=== PATIENT | male | born 1945 | race Caucasian/White ===

== ENCOUNTER 2017-06-19 04:15 | Observation (INO) ==
[2017-06-19] MEDS ORDERED: 0.9 % Sodium Chloride 1,000 ML IVC ONE (04:27)
[2017-06-19] MEDS ORDERED: Pantoprazole 80 MG in 0.9 % Sodium Chloride 50 ML IVPB ONE (04:27)
--- NOTE | 2017-06-19 04:30 | Emergency Department Note ---
Disposition Clinical Impression: HCAP (healthcare-associated pneumonia), Severe sepsis GI bleed Qualifiers: GI bleed type/associated pathology: unspecified gastrointestinal hemorrhage type Qualified Code(s): K92.2 - Gastrointestinal hemorrhage, unspecified Disposition: Admitted As Inpatient Condition: Critical Referrals: Faith Prather [employer] [Primary Care Provider] - Forms: ED Satisfaction Letter Time of Disposition: 05:41 SOB HPI - General Chief Complaint: ED Shortness of Breath/Dyspnea Stated Complaint: RENETTA/Diarrhea Time Seen by Provider: 06/19/17 04:30 Source: patient, EMS Mode of arrival: EMS Limitations: no limitations, age Nursing Notes Reviewed: Yes Vital Signs Reviewed: Yes - History of Present Illness 71-year-old male with a history of peripheral vascular disease and recent admission for possible IN, presents with bloody diarrhea shortness of breath, and lower abdominal pain. Patient also has been feeling more short of breath as he left the hospital, but this morning he woke up early called EMS because he was having bloody stool. He does not take any blood thinners, he was recently in the hospital up at [facility] for possible IN, he left AGAINST MEDICAL ADVICE according to him, he reports for a 10 lower abdominal pain, he denies history of bloody stools, he has a remote colonoscopy that was negative, he was previously a drinker, used to drink 4-6 beers a day but only drinks a few beers now and had 3 beers last week, denies a history of esophageal varices or hepatitis. Pt Subjective Complaint: shortness of breath Onset (ago): hour(s) Context: recent illness Severity: mild Consistency/Duration: intermittent Improves with: nothing Worsens with: nothing Associated symptoms: Reports: wheezing, sputum production. Denies: chest pain, pain with inspiration, fever, cough, lower extremity pain, polyuria, polydipsia Treatment prior to arrival: none - Related Data Previous Rx's Medication Instructions Recorded Albuterol Sulfate [Albuterol 2 puff IH Q4HR PRN #1 [id number].[email or web address].[email or web address] 07/08/15 Inhaler] Azithromycin [Zithromax Tri-Isaac] 500 mg PO DAILY #3 tablet 07/08/15 GuaiFENesin/Codeine [Robitussin 10 ml PO Q6HR PRN #120 liquid 07/08/15 w/Codeine] predniSONE [Prednisone] 60 mg PO DAILY #14 tablet 07/08/15 Allergies Allergy/AdvReac Type Severity Reaction Status Date / Time No Known Allergies Allergy Verified 07/08/15 17:32 All systems ED: reviewed and negative except as stated. Review of Systems: As Per HPI Constitutional: Reports: chills, weakness Eyes: Denies: eye pain ENT ED: Denies: ear pain Cardiovascular: Denies: chest pain Respiratory: Denies: cough, dyspnea Gastrointestinal: Reports: as per HPI, abdominal pain, nausea, melena, hematochezia. Denies: vomiting, diarrhea Genitourinary: Denies: urgency Musculoskeletal: Denies: back pain Integumentary: Denies: rash, abrasion Neurological: Denies: headache Psychiatric: Denies: anxiety Past Medical History - Past Medical History Attestation: Yes The following information was validated with the patient. Source: patient Medical history: Reports: COPD, peripheral artery disease Surgical history: Reports: vascular surgery Psychiatric history: Reports: no psych history - Social History Smoking Status: Current every day smoker Smokeless Tobacco Status: No Alcohol use: Reports: none Drug use: Reports: none Physical Exam - General Limitations: no limitations, age General appearance: anxious - Head Head exam: atraumatic - Eye Eye exam: Present: other (conjunctival pallor) - ENT ENT exam: mucous membranes dry - Neck Neck exam: Present: normal inspection, full ROM - Chest Chest inspection: Present: normal inspection - Respiratory Respiratory exam: Present: normal lung sounds bilaterally. Absent: respiratory distress - Cardiovascular Cardiovascular exam: Present: tachycardia - Abdominal Exam Abdominal exam: Present: soft, tenderness. Absent: distention, guarding Abdominal tenderness: Present: diffuse, mild - Rectal Exam Bottle And Glass Inspector present during exam: Yes Rectal exam: Present: deferred, bloody stool - Neurological Exam Neurological exam: Present: alert, oriented X3, CN II-XII intact - Skin Skin exam: Present: warm, dry Course Course Narrative: 71-year-old male appears tachycardic in moderate distress, he says he short of breath were put in oxygen on him but he has clear lung sounds, does not history of COPD but is on oxygen, his history of PAD and possible recent IN he was heparinized but he was not discharged on blood thinners, will check his records from [facility], given that he is tachycardic in the 120s, he is states 2 or 3 hypovolemic shock, he has got 1 L and squad we will give 1-1/2 more liters in the emergency department check basic labs CBC conference of panel lipase lactic acid blood cultures chest x-ray CT abdomen without contrast - Reevaluation(s) Reevaluation #1: Lab work reviewed at this time, shows elevation of his lactate 3.4 with a white count of 28,000, given tachycardia white count, concern for source may be gastrointestinal given bloody diarrhea, versus urinary also suspect C. difficile given recent hospitalization, plan is for empiric broad-spectrum antibiotic coverage, repeat lactate, blood cultures, he also may be generating tachycardic response from volume loss although his initial hemoglobin is 12.3 patient will be admitted, additional 500 mL of fluid was ordered he got 1 L in route 1 L ordered here initial 500 we will give him 2500 total his 30mL/kg dose is 2430. Time: 05:09 Reevaluation #2: Patient is evidence of right lower lobe infiltrate white count 20,000 he is fluid responsive, repeat lactate ordered I spoke with Dr. Roe will treat patient empirically presuming pneumonia/possible intra-abdominal infection with duodenitis thanks Zosyn Flagyl ordered, to half liters given is currently volume responsive. Time: 05:41 Vital Signs Temperature 97.8 F 06/19/17 04:16 Pulse Rate 121 06/19/17 04:16 Respiratory Rate 20 06/19/17 04:16 Blood Pressure 100/84 06/19/17 04:16 O2 Sat by Pulse Oximetry 100 06/19/17 04:16 Temperature 97.8 F 06/19/17 04:16 Pulse Rate 98 06/19/17 05:59 Respiratory Rate 18 06/19/17 05:59 Blood Pressure 118/63 06/19/17 05:59 O2 Sat by Pulse Oximetry 100 06/19/17 05:59 Oxygen Delivery Oxygen Delivery Nasal Cannula Shortness of Breath/Dyspnea - Differential Diagnosis Likely: congestive heart failure, pneumonia, asthma with exacerbation - Medical Records Medical records reviewed: Yes I reviewed the patient's medical records. - Lab Data Lab results reviewed: Yes I reviewed the patient's lab results. Result diagrams: 06/19/17 04:34 06/19/17 04:34 Lab Results 12/06/17 12/06/17 12/06/17 Range/Units 04:34 04:34 04:34 WBC 28.9 H (4.3-11.1) K/mcL RBC 4.17 L (4.19-5.50) M/mcL Hgb 12.3 L (12.9-16.9) g/dL Hct 37.3 L (37.5-50.1) % MCV 89.4 (83.0-100.0) fL MCH 29.5 (28.0-33.3) pg MCHC 33.0 (31.6-35.5) g/dL RDW 13.1 (11.5-14.5) % Plt Count 258 (140-400) K/mcL MPV 10.2 (9.4-12.4) fL Immature Gran % 5.7 H (0-4) % Seg Neutrophils % 76.3 % Lymphocytes % 12.7 % Monocytes % 5.1 % Eosinophils % 0.1 % Basophils % 0.1 % Neutrophils # 22.1 H (1.6-8.9) K/mcL Lymphocytes # 3.7 (0.6-4.6) K/mcL Monocytes # 1.5 H (0.0-1.3) K/mcL Eosinophils # 0.0 (0.0-0.6) K/mcL Basophils # 0.0 (0.0-0.2) K/mcL Platelet Estimate Normal (Normal) PT 11.4 (9.4-12.1) Seconds INR 1.1 APTT 22.4 L (26.0-36.0) Seconds Sodium 133 L (136-145) mEq/L Potassium 4.8 H (3.5-4.5) mEq/L Chloride 103 (98-109) mEq/L Carbon Dioxide 18 L (19-29) mEq/L BUN 68 H (8-26) mg/dL Creatinine 1.66 H (0.72-1.25) mg/dL Est GFR ( Amer) 50 L (> 60) Est GFR (Non-Af Amer) 41 L (> 60) BUN/Creatinine Ratio 41 H (6-26) Glucose 151 H (70-99) mg/dL Calculated Osmolality 299 (280-300) Lactic Acid (0.5-2.2) mmol/L Calcium 8.2 L (8.6-10.8) mg/dL Phosphorus 4.3 (2.3-4.7) mg/dL Magnesium 1.8 (1.6-2.6) mg/dL Total Bilirubin 0.4 (0.2-1.2) mg/dL AST 17 (5-34) Units/L ALT 26 (0-55) Units/L Alkaline Phosphatase 51 (38-126) Units/L Troponin I (0-0.03) ng/mL Serum Total Protein 5.8 L (6.0-8.3) g/dL Albumin 2.6 L (3.5-5.0) g/dL Globulin 3.2 (2.4-3.5) g/dL Albumin/Globulin Ratio 0.8 L (1.1-2.2) Lipase 52 (8-78) Units/L Urine Color (Yellow) Urine Clarity (Clear) Urine pH (5.0-8.0) pH Units Ur Specific Jeremiah (1.010-1.025) Urine Protein (Neg-Trace) mg/dL Urine Glucose (UA) (Normal) mg/dL Urine Ketones (Negative) mg/dL Urine Blood (Negative) Urine Nitrite (Negative) Urine Bilirubin (Negative) Urine Urobilinogen (Normal) mg/dL Ur Leukocyte Esterase (Negative) Urine Microscopic RBC (0-3) per hpf Urine Microscopic WBC (0-3) per hpf Ur Squamous Epith Cells (None-Few) per lpf Urine Bacteria (None-Few) per hpf Hyaline Casts (None-Few) per lpf Ur Culture Indicated? (NO) Blood Type Antibody Screen 06/19/17 06/19/17 06/19/17 Range/Units 04:34 04:34 04:34 WBC (4.3-11.1) K/mcL RBC (4.19-5.50) M/mcL Hgb (12.9-16.9) g/dL Hct (37.5-50.1) % MCV (83.0-100.0) fL MCH (28.0-33.3) pg MCHC (31.6-35.5) g/dL RDW (11.5-14.5) % Plt Count (140-400) K/mcL MPV (9.4-12.4) fL Immature Gran % (0-4) % Seg Neutrophils % % Lymphocytes % % Monocytes % % Eosinophils % % Basophils % % Neutrophils # (1.6-8.9) K/mcL Lymphocytes # (0.6-4.6) K/mcL Monocytes # (0.0-1.3) K/mcL Eosinophils # (0.0-0.6) K/mcL Basophils # (0.0-0.2) K/mcL Platelet Estimate (Normal) PT (9.4-12.1) Seconds INR APTT (26.0-36.0) Seconds Sodium (136-145) mEq/L Potassium (3.5-4.5) mEq/L Chloride (98-109) mEq/L Carbon Dioxide (19-29) mEq/L BUN (8-26) mg/dL Creatinine (0.72-1.25) mg/dL Est GFR ( Amer) (> 60) Est GFR (Non-Af Amer) (> 60) BUN/Creatinine Ratio (6-26) Glucose (70-99) mg/dL Calculated Osmolality (280-300) Lactic Acid 3.4 H (0.5-2.2) mmol/L Calcium (8.6-10.8) mg/dL Phosphorus (2.3-4.7) mg/dL Magnesium (1.6-2.6) mg/dL Total Bilirubin (0.2-1.2) mg/dL AST (5-34) Units/L ALT (0-55) Units/L Alkaline Phosphatase (38-126) Units/L Troponin I 0.03 (0-0.03) ng/mL Serum Total Protein (6.0-8.3) g/dL Albumin (3.5-5.0) g/dL Globulin (2.4-3.5) g/dL Albumin/Globulin Ratio (1.1-2.2) Lipase (8-78) Units/L Urine Color (Yellow) Urine Clarity (Clear) Urine pH (5.0-8.0) pH Units Ur Specific Jeremiah (1.010-1.025) Urine Protein (Neg-Trace) mg/dL Urine Glucose (UA) (Normal) mg/dL Urine Ketones (Negative) mg/dL Urine Blood (Negative) Urine Nitrite (Negative) Urine Bilirubin (Negative) Urine Urobilinogen (Normal) mg/dL Ur Leukocyte Esterase (Negative) Urine Microscopic RBC (0-3) per hpf Urine Microscopic WBC (0-3) per hpf Ur Squamous Epith Cells (None-Few) per lpf Urine Bacteria (None-Few) per hpf Hyaline Casts (None-Few) per lpf Ur Culture Indicated? (NO) Blood Type O POSITIVE Antibody Screen NEGATIVE 06/19/17 Range/Units 05:22 WBC (4.3-11.1) K/mcL RBC (4.19-5.50) M/mcL Hgb (12.9-16.9) g/dL Hct (37.5-50.1) % MCV (83.0-100.0) fL MCH (28.0-33.3) pg MCHC (31.6-35.5) g/dL RDW (11.5-14.5) % Plt Count (140-400) K/mcL MPV (9.4-12.4) fL Immature Gran % (0-4) % Seg Neutrophils % % Lymphocytes % % Monocytes % % Eosinophils % % Basophils % % Neutrophils # (1.6-8.9) K/mcL Lymphocytes # (0.6-4.6) K/mcL Monocytes # (0.0-1.3) K/mcL Eosinophils # (0.0-0.6) K/mcL Basophils # (0.0-0.2) K/mcL Platelet Estimate (Normal) PT (9.4-12.1) Seconds INR APTT (26.0-36.0) Seconds Sodium (136-145) mEq/L Potassium (3.5-4.5) mEq/L Chloride (98-109) mEq/L Carbon Dioxide (19-29) mEq/L BUN (8-26) mg/dL Creatinine (0.72-1.25) mg/dL Est GFR ( Amer) (> 60) Est GFR (Non-Af Amer) (> 60) BUN/Creatinine Ratio (6-26) Glucose (70-99) mg/dL Calculated Osmolality (280-300) Lactic Acid (0.5-2.2) mmol/L Calcium (8.6-10.8) mg/dL Phosphorus (2.3-4.7) mg/dL Magnesium (1.6-2.6) mg/dL Total Bilirubin (0.2-1.2) mg/dL AST (5-34) Units/L ALT (0-55) Units/L Alkaline Phosphatase (38-126) Units/L Troponin I (0-0.03) ng/mL Serum Total Protein (6.0-8.3) g/dL Albumin (3.5-5.0) g/dL Globulin (2.4-3.5) g/dL Albumin/Globulin Ratio (1.1-2.2) Lipase (8-78) Units/L Urine Color Yellow (Yellow) Urine Clarity Clear (Clear) Urine pH 6.5 (5.0-8.0) pH Units Ur Specific Jeremiah 1.024 (1.010-1.025) Urine Protein 30 H (Neg-Trace) mg/dL Urine Glucose (UA) Normal (Normal) mg/dL Urine Ketones Negative (Negative) mg/dL Urine Blood Negative (Negative) Urine Nitrite Negative (Negative) Urine Bilirubin Negative (Negative) Urine Urobilinogen Normal (Normal) mg/dL Ur Leukocyte Esterase Negative (Negative) Urine Microscopic RBC 0-3 (0-3) per hpf Urine Microscopic WBC 0-3 (0-3) per hpf Ur Squamous Epith Cells Many H (None-Few) per lpf Urine Bacteria None Seen (None-Few) per hpf Hyaline Casts None Seen (None-Few) per lpf Ur Culture Indicated? NO (NO) Blood Type Antibody Screen - Radiology Data Radiology results reviewed: Yes I reviewed the patient's radiology results. Chest X-Ray 06/19/17 04:28 IMPRESSION: No acute cardiopulmonary disease. COPD. D/ / Nahun Haddad MD / Nahun Haddad MD Interpreting Provider: Nahun Haddad MD Abdomen/Pelvis CT 06/19/17 04:40 IMPRESSION: 1. Mild infiltration of the peripancreatic fat in the region of the pancreatic head suggesting either a mild focal pancreatitis or duodenitis. 2. No other acute findings within the abdomen or pelvis. No CT evidence of appendicitis. 3. Patchy right lower lobe infiltrates suggesting a pneumonia. COPD. 4. Previous aorto-bifemoral graft. Moderate aortoiliac plaque with no aneurysm. D/ / Nahun Haddad MD / Nahun Haddad MD Interpreting Provider: Nahun Haddad MD - EKG Data EKG attestation: Yes I reviewed and interpreted this EKG. EKG shows normal: Reports: sinus rhythm Rate: Reports: tachycardia (Sinus tachycardia rate of 116 SC 106 QRS [address] segment elevations or depression) Rhythm: Reports: NSR Critical Care Time Critical Care Time: Yes Total Critical Care Time: 40 Attestation: Critical care performed: Time is exclusive of separately billable procedures. Time includes: direct patient care, patient reassessment, coordination of patient care, interpretation of data (laboratory data, radiology data, and respiratory data), review of patient's medical records, medical consultation and documentation of patient care. Procedures included in critical care time: Procedures excluded from critical care time: Attestation Statement - Attestation Attestation: I, Ronnie Santiago MD, personally evaluated this patient and discussed their management with the resident physician. I reviewed the resident's note and agree with the documented findings, medical decision making, and plan of care. 71-year-old male presents to the emergency department by ambulance with a complaint of increasing shortness of breath over about the past week. No increased cough. No fever. No chest pain. The shortness breath is worse with exertion. He was admitted at another facility 5 days ago but apparently signed himself out AMA. He primarily presents tonight because he woke up during the night with bloody diarrhea. He states that all day yesterday he had some abdominal discomfort and decreased appetite. He denies taking aspirin or any other blood thinner medications. No history of GI bleed. On examination patient is a well-developed well-nourished elderly male in no acute distress. He is alert and oriented 3. There is no cyanosis or diaphoresis. He does appear somewhat pale. Mucous membranes are moist. Neck is supple and nontender with no lymphadenopathy. Chest is nontender to palpation. Breath sounds are clear and equal bilaterally. Heart regular with a mild to moderate tachycardia. Abdomen is soft with increased bowel sounds. Mild diffuse tenderness. Labs reviewed. WBC 28.9. Lactic acid 3.4. CT of the abdomen and pelvis showed : 1. Mild infiltration of the peripancreatic fat in the region of the pancreatic head suggesting either a mild focal pancreatitis or duodenitis. 2. No other acute findings within the abdomen or pelvis. No CT evidence of appendicitis. 3. Patchy right lower lobe infiltrates suggesting a pneumonia. COPD. 4. Previous aorto-bifemoral graft. Moderate aortoiliac plaque with no aneurysm. The hospitalist, Dr. Roe, was consulted and accepted admission of the patient. Sepsis Reassessment Note - Evaluation Sepsis Screen: No Definite Risk Current Stage of Sepsis: severe sepsis Possible Source of Sepsis: pulmonary - Focused Exam Date of Encounter: 06/19/17 Time of Encounter: 05:00 Vital Signs: Vital Signs Temp Pulse Resp BP Pulse Ox 06/19/17 05:59 98 18 118/63 100 06/19/17 05:02 100 20 99/60 99 06/19/17 04:16 97.8 F 121 20 100/84 100 Respiratory Exam: Present: CTA bilaterally Cardiovascular Exam: Present: tachycardia Capillary Refill: < 2 seconds Peripheral Pulse Strength: 3+ normal Peripheral Pulse Location: Radial Skin Exam: normal turgor - Reassessment Comments Comments: Severe sepsis re-eval obtained, lactate was 3.4, meads only severe sepsis criteria with tachycardia white blood cell count pneumonia identified and lactic acidosis however have a few episodes with a systolic blood pressure less than 90 these occurred after he was throwing up with assumedly vagalling down, he has gotten is 30 mL per kilogram bolus, and is also not showing any signs of hypotension after vomiting but his blood pressure is low currently 114/80, fluid responsive.
[2017-06-19] MEDS ORDERED: Ondansetron 4 MG/2 ML VIAL IVP ONE (04:40)
[2017-06-19] MEDS ORDERED: Pantoprazole 80 MG in Water for inj. (sterile) 10 ML IVP ONE (04:45)
[2017-06-19 04:55] LABS: Basophils % 0.1 %; Eosinophils % 0.1 %; Hemoglobin 12.3 g/dL (12.9-16.9); Lymphocytes % 12.7 %; Monocytes % 5.1 %
[2017-06-19 04:56] LABS: Hematocrit 37.3 % (37.5-50.1); Immature Granulocytes % 5.7 % (0-4); Lymphocytes # 3.7 K/mcL (0.6-4.6); Mean Corpuscular Hemoglobin 29.5 pg (28.0-33.3); Mean Corpuscular Volume 89.4 fL (83.0-100.0); Mean Platelet Volume 10.2 fL (9.4-12.4); Monocytes # 1.5 K/mcL (0.0-1.3); Platelet Count 258 K/mcL (140-400); Red Blood Count 4.17 M/mcL (4.19-5.50); Red Cell Distribution Width 13.1 % (11.5-14.5); Segmented Neutrophils % 76.3 %
[2017-06-19 05:03] LABS: Neutrophils # 22.1 K/mcL (1.6-8.9)
[2017-06-19 05:05] LABS: Albumin 2.6 g/dL (3.5-5.0); Albumin/Globulin Ratio 0.8 (1.1-2.2); Bilirubin,Total 0.4 mg/dL (0.2-1.2); Calcium 8.2 mg/dL (8.6-10.8); Globulin 3.2 g/dL (2.4-3.5); INR 1.1; Potassium 4.8 mEq/L (3.5-4.5); Prothrombin Time 11.4 Seconds (9.4-12.1); Total Protein 5.8 g/dL (6.0-8.3)
[2017-06-19 05:07] LABS: Activated Partial Thrombo Time 22.4 Seconds (26.0-36.0)
[2017-06-19] MEDS ORDERED: 0.9 % Sodium Chloride 500 ML IVC ONE (05:07)
[2017-06-19] MEDS ORDERED: MetroNIDAZOLE 500 MG/100 ML 500 MG/100 ML BAG IVPB ONE (05:10)
[2017-06-19] MEDS ORDERED: Piperacillin/Tazobactam 3.375 GM in Water for inj. (sterile) 20 ML IVP ONE (05:10)
[2017-06-19] MEDS ORDERED: Vancomycin 1,000 MG in D5% in Water 250 ML IVPB ONE (05:15)
[2017-06-19 05:27] LABS: Magnesium 1.8 mg/dL (1.6-2.6); Phosphorous 4.3 mg/dL (2.3-4.7)
[2017-06-19 05:56] LABS: Bilirubin,Urine Negative (Negative); Blood,Urine Negative (Negative); Clarity,Urine Clear (Clear); Color,Urine Yellow (Yellow); Glucose,Urine (UA) Normal (Normal); Ketones,Urine Negative (Negative); Leukocyte Esterase,Urine Negative (Negative); Nitrite,Urine Negative (Negative); PH,Urine 6.5 pH Units (5.0-8.0); Protein,Urine 30 mg/dL (Neg-Trace); Specific Gravity,Urine 1.024 (1.010-1.025); Urobilinogen,Urine Normal (Normal)
[2017-06-19 05:57] LABS: Bacteria,Urine None Seen per hpf (None-Few); Hyaline Casts,Urine None Seen per lpf (None-Few); RBC,Urine 0-3 per hpf (0-3); Squamous Epithelial Cell,Urine Many per lpf (None-Few); WBC,Urine 0-3 per hpf (0-3)
[2017-06-19 06:20] LABS: Platelet Estimate Normal (Normal)
[2017-06-19] MEDS ORDERED: Acetaminophen 325 MG TABLET PO PRN ×2 (08:41→17:55)
[2017-06-19] MEDS ORDERED: Naloxone 0.4 MG/ML INJ IVP PRN ×2 (08:41→17:55)
[2017-06-19] MEDS ORDERED: Ondansetron 4 MG/2 ML VIAL IVP PRN ×2 (08:41→17:55)
[2017-06-19] MEDS ORDERED: 0.9 % Sodium Chloride 1,000 ML IVC SCH (08:45)
[2017-06-19] MEDS ORDERED: *HR* LORazepam 2 MG/ML VIAL IVP PRN ×6 (08:49→17:55)
[2017-06-19] MEDS ORDERED: Folic Acid 1 MG TABLET PO SCH (09:00)
[2017-06-19] MEDS ORDERED: Metoprolol XL (24 HR) Succ 50 MG TAB.ER.24H PO SCH (09:00)
[2017-06-19] MEDS ORDERED: Vancomycin (wt based) 1,000 MG VIAL IVPB SCH (09:00)
[2017-06-19] MEDS ORDERED: Vitamin B Complex/Vit C/Vit E 1 EACH TABLET PO SCH (09:00)
--- NOTE | 2017-06-19 09:22 | Internal Med History&Physical ---
Date of Encounter: 06/19/17 Time of Encounter: 09:00 Assessment and Plan (1) Hematochezia Current visit: Yes Status: Acute Pt relates acute lower GI bleeding. No abd pain. No fever or chills. Admit. Monitor H/H Check stool studies. GI evaluation after studies returned. Continue IV fluids abd blood transfusion if needed. IV PPI. (2) C. difficile colitis Current visit: Yes Status: Suspected Recent hospitalization with IV abx. IV flagyl started and studies ordered. (3) HCAP (healthcare-associated pneumonia) Current visit: Yes Status: Acute Recent hospitalization and pneumonia on CXR. Continue IV abx Oxygen and supportive care Cultures from ED pending. (4) Severe sepsis Current visit: Yes Status: Acute Has received IV fluids. Lactate now normal. Continue supportive care overnight. (5) History of alcohol use Current visit: Yes Status: Acute CIWA protocol for now. (6) Anemia, posthemorrhagic, acute Current visit: Yes Status: Acute Due to GI bleed. Follow H/H and transfuse as needed. (7) Hypertension Current visit: Yes Status: Chronic Monitor BP Qualifiers: Hypertension type: essential hypertension Qualified Code(s): I10 - Essential (primary) hypertension Internal Medicine - H&P: HPI Chief complaint: Diarrhea and bleeding Admitted From: Emergency Dept Plans for Post Hospital Care: [facility] History of present illness: Mr. Medrano is a 71 year old male with hx of COPD presented to ED due to diarrhea and bleeding. He stated that last Zeyad he was at his nephew's in [place]. He was having worsening respiratory distress and went to [place]. He was admitted and was started on steroids and abx for COPD. He was seen by cardiology and was told he needed cath and pacer. He signed out AMA due to interaction. He has been about the same at home. During the night he developed profuse watery diarrhea and noted it was bloody as well. Happened at least 4 times and was uncontrollable. "It just ran down my leg." He became weak and came to ED. He was evaluated and admitted with presumed sepsis and GI bleed. At this time he feels very tired and weak. He has had not further BM. No abd pain. No fever or chills. Heartrate has been elevated and BP low. Pt high risk due to hypotension and tachycardia with severe sepsis and acute bleed. He is currently in ICU. Past Med Surg Social Fam HX - Past Medical History Medical history: COPD, hyperlipidemia, hypertension, peripheral artery disease, renal disease Psychiatric history: no psych history - Past Surgical History Surgical History: cataract, orthopedic, other, vascular surgery, other ( testicular benign tumor) - Social History Smoking Status: Current every day smoker Smokeless Tobacco Status: No Alcohol use: occasionally Drug use: none - Family History Mother Living Status: Hx Family Cardiac Disorders: Yes Internal Medicine - H&P: Meds Atorvastatin Calcium [Lipitor] 20 mg PO QPM 06/19/17 [History] Ergocalciferol (VITAMIN D2) [Vitamin D2] 50,000 unit PO QWEEK 06/19/17 [History] Loratadine [Allergy Relief] 10 mg PO DAILY 06/19/17 [History] Metoprolol Succinate 50 mg PO DAILY 06/19/17 [History] 3 Allergy/AdvReac Type Severity Reaction Status Date / Time No Known Allergies Allergy Verified 06/19/17 07:08 All Systems PM: A 10-system review of systems was performed and is negative for pertinent findings except as documented above in the HPI. - Constitutional Constitutional: fatigue, lethargy, weakness - EENT Eyes: no change in vision, no pain Ears: no decreased hearing, no ear discharge Nose, mouth and throat: dry mouth, no mouth pain, no sinus pain - Cardiovascular Cardiovascular ROS IM: dyspnea, dyspnea on exertion, no chest pain, no diaphoresis, no orthopnea, no palpitations - Respiratory Respiratory: dyspnea, dyspnea on exertion, no wheezing, no chest congestion - Gastrointestinal Gastrointestinal: change in bowel habits, change in stool character, diarrhea, fecal incontinence, hematochezia, melena, no abdominal pain - Genitourinary Genitourinary ROS male: no dysuria, no nocturia, no urinary hesitancy - Musculoskeletal Musculoskeletal ROS IM: arthralgias, stiffness - Integumentary Integumentary IM: no erythema, no rash - Neurological Neurological ROS: restless legs, no abnormal gait, no confusion - Psychiatric Psychiatric: no anxiety, no irritability - Endocrine Endocrine IM: no cold intolerance, no heat intolerance - Hematologic/Lymphatic Hematologic/Lymphatic: no easy bleeding - Allergic/Immunologic Allergic/Immunologic: no itchy eyes, no wheezing - Constitutional Vitals: Temp Pulse Resp BP Pulse Ox 97.6 F 95 12 95/64 98 06/19/17 06:47 06/19/17 08:00 06/19/17 08:00 06/19/17 08:00 06/19/17 08:00 General appearance: Present: A&O X 3, pleasant, answers questions appropriately - Head Head exam: Present: normocephalic - Eye Eye exam: Present: EOMI, conjuntiva pink - ENT ENT exam: Present: mucous membranes dry - Neck Neck exam general surgery: Present: normal inspection. Absent: thyromegaly - Respiratory Respiratory exam: Present: decreased breath sounds, CTAB. Absent: rales, rhonchi, wheezes - Cardiovascular Cardiovascular exam: Present: tachycardia. Absent: +S4, systolic murmur - GI/Abdominal GI/Abdominal exam: Present: normal bowel sounds, soft. Absent: mass, tenderness - Extremities Exam Extremities exam: Present: warm. Absent: tenderness - Neurological Exam Neurological exam: Present: alert, oriented X3, no focal deficits - Psychiatric Psychiatric exam: Present: normal affect, normal mood. Absent: agitated - Skin Skin exam: Present: dry, warm. Absent: rash Internal Med - H&P Results - Labs CBC & Chem 7: 06/19/17 15:36 06/19/17 04:34 - VTE Reasons for not Prescribing Prophylaxis: Medical contraindication
[2017-06-19] MEDS ORDERED: Albuterol 2.5 MG/3 ML NEBULIZER IH PRN ×2 (09:23→17:55)
[2017-06-19] MEDS: Thiamine (B-1) 100 MG TABLET PO SCH (09:41)
[2017-06-19] MEDS ORDERED: Budesonide/Formoterol 80/4.5 MDI IH SCH (10:00)
--- NOTE | 2017-06-19 10:05 | Gastroenterology Consult Note ---
<Cm Ruiz - Last Filed: 06/19/17 09:57> Date of Encounter: 06/19/17 Time of Encounter: 09:57 - Assessment and plan (1) GI bleed Current Visit: Yes Status: Acute Assessment and plan: Patient's baseline hemoglobin is 15.4. Presented with a hemoglobin of 12.3 Reports bloody diarrhea 4 this morning. Hemodynamically stable. Not requiring any vasopressors. Ports only previous inguinal hernia repair. CT abdomen and pelvis shows possible pancreatitis or duodenitis. And patchy right lower lobe infiltrate suggesting a pneumonia. Lipase within normal limits. Initial lactic acid 3.4 Elevated white blood cell count History of peripheral artery disease Plan: Differential diagnosis may be infectious diarrhea. Ischemic colitis. Serial H&H Continue Zosyn and metronidazole. Stool infectious panel. If infectious panel negative patient may require colonoscopy. Continue PPI Clear liquid diet. Qualifiers: GI bleed type/associated pathology: unspecified gastrointestinal hemorrhage type Qualified Code(s): K92.2 - Gastrointestinal hemorrhage, unspecified (2) Severe sepsis Current Visit: Yes Status: Acute Assessment and plan: Presented with elevated white blood cell count, lactic acid 2.4, tachycardic. Patient is being treated for pneumonia and suspected infectious diarrhea. On Zosyn and metronidazole. (3) Vasculopathy Current Visit: Yes Status: Acute Assessment and plan: Patient has a history of peripheral artery disease. Has history of aortobifemoral bypass Has increased risk of ischemic colitis. Awaiting stool studies, fecal occult test. (4) DVT prophylaxis Current Visit: Yes Status: Acute Assessment and plan: E PCD. (5) History of alcohol use Current Visit: Yes Status: Acute Assessment and plan: Patient reports a history of alcohol use Patient states he used to drink 5-6 beers a day. Currently he states he only drinks a few beers a week. Patient is on Sever protocol - Time Spent With Patient Total time spent is greater than 50% in coordination of care (as documented) at patient's floor/unit and/or counseling patient: GI History of Present Illness - Data of Consult Patient: new to practice Consult date: 06/19/17 Requesting Physician: Thomas Galarza DO - Consult Narrative Reason for consult: Hematochezia History of present illness: Mr. Medrano is a 71 year old male presented with chief complaint of bloody diarrhea which started this morning. Patient states she had a total 4. His last 3 bloody bowel movements, he had sold himself. During this time he reports feeling lightheaded, stated almost passed out but caught himself. States his bowel movements are formed usually. Denied any falls, head trauma. Patient denies travel, sick contacts. He denies nausea, vomiting, hematemesis. He reports history of having periumbilical sharp abdominal pain which lasted a few minutes and resolved on its own. Currently denies any abdominal pain. Patient is not on any blood thinners. States he has had a colonoscopy in the past which was benign. Denies any history of having an EGD. Reports in the past he used to drink 4-6 beers daily but states he only drinks weekly now. Last Saturday patient is admitted to [facility] secondary to shortness of breath. According to records, patient was diagnosed with COPD exacerbation and pneumonia. He also had elevation in troponins. Patient underwent a echocardiogram which showed EF of 60% with normal LV function.Chest x-ray showed signs of pneumonia. He was treated with antibiotics, steroids. Patient states he left AGAINST MEDICAL ADVICE. Past Med Surg Social Fam HX - Past Medical History Medical history: COPD, hyperlipidemia, hypertension, peripheral artery disease, renal disease Psychiatric history: no psych history - Past Surgical History Surgical History: cataract, orthopedic, other, vascular surgery - Social History Smoking Status: Current every day smoker Smokeless Tobacco Status: No Alcohol use: occasionally Drug use: none Review of Systems: Constitutional: Denies fever, chills HEENT: Denies headache, vision changes, neck pain, sore throat, rhinorrhea Heart: Denies chest pain palpitations Lungs: For shortness of breath. Denies cough Abdomen: Denies abdominal pain nausea vomiting. Reports bloody diarrhea. Back: Denies back pain Kidney: Denies dysuria, hematuria Skin: warm and dry Extremities: Denies swelling, pain Neuro: Denies numbness, and tingling - Constitutional Vitals: Temp Pulse Resp BP Pulse Ox 97.6 F 98 18 98/66 98 06/19/17 06:47 06/19/17 09:00 06/19/17 09:00 06/19/17 09:00 06/19/17 09:00 - Other Additional findings: General: Pleasant without distress HEENT: Head atraumatic, normocephalic, EOMI, PERRL, neck nontender to palpation , absent lymphadenopathy, Moist Mucous Membranes, Heart: Regular rate and rhythm with no murmur Lungs: Clear to auscultation bilaterally Abdomen: Soft mild tender to right lower quadrant. Positive bowel sounds. Absent hepatomegaly, splenomegaly. Skin: warm and dry Extremities: Absent pedal edema, evidence of blood stains on his left lower extremity Neuro: Alert oriented 3 able to move all extremities. Vascular: Pedal and radial pulses 2 out of 4 Results - Labs CBC & Chem 7: 06/19/17 04:34 06/19/17 04:34 Labs: Last Result Calcium 8.2 mg/dL (8.6-10.8) L 06/19/17 04:34 Troponin I 0.03 ng/mL (0-0.03) 06/19/17 04:34 Entire Visit Hgb 12.3 g/dL (12.9-16.9) L 06/19/17 04:34 Hct 37.3 % (37.5-50.1) L 06/19/17 04:34 PT 11.4 Seconds (9.4-12.1) 06/19/17 04:34 Total Bilirubin 0.4 mg/dL (0.2-1.2) 06/19/17 04:34 AST 17 Units/L (5-34) 06/19/17 04:34 ALT 26 Units/L (0-55) 06/19/17 04:34 Lipase 52 Units/L (8-78) 06/19/17 04:34 - ABG ABG results: PT/INR, D-dimer PT 11.4 Seconds (9.4-12.1) 06/19/17 04:34 Consult Discharge Plan - Plan Referrals: Faith Prather DAIRY CONSULTANT [Primary Care Provider] - <Cheryle Rojas - Last Filed: 06/19/17 17:54> Date of Encounter: 06/19/17 Time of Encounter: 18:00 - Time Spent With Patient Total time spent is greater than 50% in coordination of care (as documented) at patient's floor/unit and/or counseling patient: GI History of Present Illness - Data of Consult Requesting Physician: Thomas Galarza DO - Consult Narrative History of present illness: Mr. Medrano is a 71 year old male - Constitutional Vitals: Temp Pulse Resp BP Pulse Ox 98.7 F 100 14 110/69 98 06/19/17 15:43 06/19/17 16:00 06/19/17 16:00 06/19/17 16:00 06/19/17 16:00 Results - Labs CBC & Chem 7: 06/19/17 15:36 06/19/17 04:34 Labs: Last Result Calcium 8.2 mg/dL (8.6-10.8) L 06/19/17 04:34 Troponin I 0.03 ng/mL (0-0.03) 06/19/17 04:34 Entire Visit Hgb 9.5 g/dL (12.9-16.9) L 06/19/17 15:36 Hct 28.4 % (37.5-50.1) L 06/19/17 15:36 PT 11.4 Seconds (9.4-12.1) 06/19/17 04:34 Total Bilirubin 0.4 mg/dL (0.2-1.2) 06/19/17 04:34 AST 17 Units/L (5-34) 06/19/17 04:34 ALT 26 Units/L (0-55) 06/19/17 04:34 Lipase 52 Units/L (8-78) 06/19/17 04:34 - ABG ABG results: PT/INR, D-dimer PT 11.4 Seconds (9.4-12.1) 06/19/17 04:34 - Attending Attestation I examined this patient and my medical decision-making was reviewed with the Resident Physician. I agree with the documented findings, disposition and treatment plan as described except to the extent set forth below. Patient with lower GI bleed most probably due to ischemic colitis patient does has significant peripheral vascular disease. At This point hemoglobin is stable patient is not bleeding anymore. Continue supportive care patient to follow up with GI as an outpatient in 4-6 weeks and consider colonoscopy as an outpatient to make sure colitis has resolved
[2017-06-19 10:21] LABS: Hematocrit 31.9 % (37.5-50.1)
[2017-06-19 10:22] LABS: Hemoglobin 10.3 g/dL (12.9-16.9)
[2017-06-19] MEDS: Ipratropium/Albuterol Neb 3 ML IH SCH ×3 (10:44→22:15)
[2017-06-19] MEDS ORDERED: MetroNIDAZOLE 500 MG/100 ML 500 MG/100 ML BAG IVPB SCH (13:00)
[2017-06-19 15:42] LABS: Hematocrit 28.4 % (37.5-50.1); Hemoglobin 9.5 g/dL (12.9-16.9)
[2017-06-19] MEDS ORDERED: Piperacillin/Tazobactam 3.375 GM/200 ML BAG IVPB SCH (16:00)
[2017-06-19] MEDS ORDERED: Pantoprazole 40 MG VIAL IVPB SCH (18:00)
--- NOTE | 2017-06-19 19:30 | Electrocardiograph Report ---
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
[2017-06-19] MEDS: Pantoprazole 40 MG VIAL IVPB SCH (20:36)
[2017-06-19] MEDS: MetroNIDAZOLE 500 MG/100 ML 500 MG/100 ML BAG IVPB SCH (20:36)
[2017-06-19 21:35] LABS: Hematocrit 27.6 % (37.5-50.1)
[2017-06-19 22:03] LABS: Adenovirus F 40/41 PCR Not detected (Not detect); Astrovirus PCR Not detected (Not detect); C.difficile Toxin A/B by PCR Not detected (Not detect); Campylobacter by PCR Not detected (Not detect); Cryptosporidium by PCR Not detected (Not detect); Cyclospora cayetanensis PCR Not detected (Not detect); E. coli O157 by PCR Not detected (Not detect); Entamoeba histolytica PCR Not detected (Not detect); Enteroaggregative E.coli(EAEC) Not detected (Not detect); Enteropathogenic E.coli(EPEC) Not detected (Not detect); Enterotoxigenic E.coli (ETEC) Not detected (Not detect); Giardia lamblia PCR Not detected (Not detect); Norovirus GI/GII PCR Not detected (Not detect); Plesiomonas shigelloides PCR Not detected (Not detect); Rotavirus A PCR Not detected (Not detect); Salmonella PCR Not detected (Not detect); Sapovirus PCR Not detected (Not detect); Shig/EnteroinvasiveE coli EIEC Not detected (Not detect); Shigalike tox-prod E coli STEC Not detected (Not detect); Vibrio PCR Not detected (Not detect); Vibrio cholerae PCR Not detected (Not detect); Yersinia enterocolitica PCR Not detected (Not detect)
[2017-06-19] MEDS: Budesonide/Formoterol 80/4.5 MDI IH SCH (22:15)
[2017-06-19] MEDS: 0.9 % Sodium Chloride 1,000 ML IVC SCH (23:15)
[2017-06-19] MEDS: Piperacillin/Tazobactam 3.375 GM/200 ML BAG IVPB SCH (23:18)
[2017-06-20] MEDS: MetroNIDAZOLE 500 MG/100 ML 500 MG/100 ML BAG IVPB SCH (04:17)
[2017-06-20 04:30] LABS: Hematocrit 26.1 % (37.5-50.1); Hemoglobin 8.6 g/dL (12.9-16.9); Mean Corpuscular Hemoglobin 29.9 pg (28.0-33.3); Mean Corpuscular Volume 90.6 fL (83.0-100.0); Mean Platelet Volume 9.7 fL (9.4-12.4); Platelet Count 179 K/mcL (140-400); Red Blood Count 2.88 M/mcL (4.19-5.50); Red Cell Distribution Width 13.2 % (11.5-14.5)
[2017-06-20] MEDS: Ipratropium/Albuterol Neb 3 ML IH SCH ×4 (04:50→22:22)
[2017-06-20 04:55] LABS: BUN/Creatinine Ratio 28 (6-26); Calcium 7.3 mg/dL (8.6-10.8); Carbon Dioxide 20 mEq/L (19-29); Chloride 114 mEq/L (98-109); Glucose 108 mg/dL (70-99); Magnesium 1.5 mg/dL (1.6-2.6); Osmolality,Calculated 298 (280-300); Phosphorous 2.5 mg/dL (2.3-4.7); Potassium 4.2 mEq/L (3.5-4.5); eGFR For African Americans > 60 (> 60); eGFR For Non-African Americans > 60 (> 60)
[2017-06-20 04:58] LABS: Blood Urea Nitrogen 33 mg/dL (8-26); Sodium 140 mEq/L (136-145)
[2017-06-20] MEDS ORDERED: Vancomycin 1,250 MG in D5% in Water 250 ML IVPB SCH (05:00)
[2017-06-20] MEDS: Vancomycin 1,250 MG in D5% in Water 250 ML IVPB SCH (05:23)
[2017-06-20] MEDS: Pantoprazole 40 MG VIAL IVPB SCH ×2 (06:16→17:04)
[2017-06-20] MEDS: Piperacillin/Tazobactam 3.375 GM/200 ML BAG IVPB SCH ×2 (08:34→16:18)
[2017-06-20] MEDS: Folic Acid 1 MG TABLET PO SCH (08:44)
[2017-06-20] MEDS: Vitamin B Complex/Vit C/Vit E 1 EACH TABLET PO SCH (08:44)
[2017-06-20] MEDS: Thiamine (B-1) 100 MG TABLET PO SCH (08:44)
--- NOTE | 2017-06-20 08:59 | Internal Med Progress Note ---
Date of Encounter: 06/20/17 Time of Encounter: 08:30 - Assessment and plan (1) Hematochezia Current Visit: Yes Status: Acute Assessment and plan: Had recurrent episodes last night. Monitoring H/H today and will give blood Anticipate endoscopy tomorrow. (2) Anemia, posthemorrhagic, acute Current Visit: Yes Status: Acute Assessment and plan: Hemoglobin has dropped again today. He is tachycardic. Will transfuse 2 units PRBCs today. (3) C. difficile colitis Current Visit: Yes Status: Ruled-out Assessment and plan: Test negative. Flagyl stopped. (4) HCAP (healthcare-associated pneumonia) Current Visit: Yes Status: Acute Assessment and plan: Slowly improving. Will complete course of abx. (5) Severe sepsis Current Visit: Yes Status: Acute Assessment and plan: Slowly improving. (6) History of alcohol use Current Visit: Yes Status: Acute Assessment and plan: No acute symptoms at this time. (7) Hypertension Current Visit: Yes Status: Chronic Assessment and plan: Controlled at this time. Qualifiers: Hypertension type: essential hypertension Qualified Code(s): I10 - Essential (primary) hypertension - Subjective Interval history: Mr Medrano is currently admitted for acute GI bleed and anemia. He remains moderate to high risk due to potential for worsening clinical status. He is going to receive blood today. Mr Medrano feels OK. He had more bleeding overnight. Stool studies negative. No abd pain. Heart fast but no dizziness. No CP or SOB. Tolerating liquid diet. - Constitutional Vitals: Temp Pulse Resp BP Pulse Ox 98.4 F 112 16 124/89 96 06/20/17 07:36 06/20/17 08:00 06/20/17 05:00 06/20/17 05:00 06/20/17 05:00 General appearance: Present: A&O X 3, pleasant, answers questions appropriately - Head Head exam: Present: atraumatic, normocephalic - Eye Eye exam: Present: EOMI, conjuntiva pink - ENT ENT exam: Present: mucous membranes dry - Respiratory Respiratory exam: Present: decreased breath sounds, CTAB. Absent: rales, rhonchi, wheezes - Cardiovascular Cardiovascular exam: Present: tachycardia. Absent: systolic murmur - GI/Abdominal GI/Abdominal exam: Present: normal bowel sounds, soft. Absent: mass, tenderness - Extremities Exam Extremities exam: Present: warm. Absent: tenderness - Neurological Exam Neurological exam: Present: alert, oriented X3, no focal deficits - Skin Skin exam: Present: dry, warm. Absent: rash Internal Medicine: Result - Labs CBC & Chem 7: 06/20/17 04:19 06/20/17 04:19 Labs: Short CBC 06/19/17 06/19/17 06/19/17 Range/Units 09:59 15:36 21:25 WBC (4.3-11.1) K/mcL Hgb 10.3 L D 9.5 L 9.0 L (12.9-16.9) g/dL Hct 31.9 L 28.4 L 27.6 L (37.5-50.1) % Plt Count (140-400) K/mcL 06/20/17 Range/Units 04:19 WBC 14.3 H D (4.3-11.1) K/mcL Hgb 8.6 L (12.9-16.9) g/dL Hct 26.1 L (37.5-50.1) % Plt Count 179 (140-400) K/mcL [facility] 06/20/17 04:19 Sodium 140 D Potassium 4.2 Chloride 114 H Carbon Dioxide 20 BUN 33 H D Creatinine 1.18 Glucose 108 H Calcium 7.3 L - ABG Interpretation ABG results: PT/INR, D-dimer PT 11.4 Seconds (9.4-12.1) 06/19/17 04:34 - VTE Reasons for not Prescribing Prophylaxis: Medical contraindication Documentation of Mechanical Device: Intermittent pneumatic compression device Consult Discharge Plan - Plan Referrals: Faith Prather CNP [Primary Care Provider] -
[2017-06-20] MEDS ORDERED: 0.9 % Sodium Chloride 250 ML ONE ×2 (10:23→14:14)
[2017-06-20] MEDS ORDERED: SODIUM CHLORIDE/NAHCO3/KCL/PEG 4,000 ML SOLN.RECON PO ONE (10:45)
--- NOTE | 2017-06-20 10:50 | Gastroenterology Progress Note ---
<Cm Ruiz - Last Filed: 06/20/17 10:47> Date of Encounter: 06/20/17 Time of Encounter: 10:47 - Assessment and plan (1) GI bleed Current Visit: Yes Status: Acute Assessment and plan: continues to have bloody bowel movement transfusing 2 units PBRC today colonoscopy tomorrow stool panel negative. Plan: Serial H&H Continue PPI Clear liquid diet. Qualifiers: GI bleed type/associated pathology: unspecified gastrointestinal hemorrhage type Qualified Code(s): K92.2 - Gastrointestinal hemorrhage, unspecified (2) Severe sepsis Current Visit: Yes Status: Acute Assessment and plan: Presented with elevated white blood cell count, lactic acid 2.4, tachycardic. Patient is being treated for pneumonia and suspected infectious diarrhea. On Zosyn and metronidazole. (3) Vasculopathy Current Visit: Yes Status: Acute Assessment and plan: Patient has a history of peripheral artery disease. Has history of aortobifemoral bypass Has increased risk of ischemic colitis. colonoscopy tomorrow (4) DVT prophylaxis Current Visit: Yes Status: Acute Assessment and plan: E PCD. (5) History of alcohol use Current Visit: Yes Status: Acute Assessment and plan: Patient reports a history of alcohol use Patient states he used to drink 5-6 beers a day. Currently he states he only drinks a few beers a week. Patient is on [place] protocol - Time Spent With Patient Total time spent is greater than 50% in coordination of care (as documented) at patient's floor/unit and/or counseling patient: - Subjective Interval history: patient had 4 dark bloody bowel movments last night. Currently being transfused 2 units PBRC. Tacycardiac. BP stable. - Constitutional Vitals: Temp Pulse Resp BP Pulse Ox 97.8 F 111 22 127/75 95 06/20/17 10:42 06/20/17 10:42 06/20/17 10:42 06/20/17 10:42 06/20/17 10:20 General appearance: Present: A&O X 3 - Respiratory Respiratory exam: Present: CTAB - Cardiovascular Cardiovascular exam: Present: +S1, +S2, tachycardia - GI/Abdominal GI/Abdominal exam: Present: normal bowel sounds, soft, no peritoneal signs - Extremities Exam Extremities exam: Present: warm. Absent: pedal edema Results - Labs CBC & Chem 7: 06/20/17 04:19 06/20/17 04:19 Labs: Last Result Calcium 7.3 mg/dL (8.6-10.8) L 06/20/17 04:19 Troponin I 0.03 ng/mL (0-0.03) 06/19/17 04:34 Stool Occult Blood Positive (Negative) A 06/19/17 19:30 Entire Visit Hgb 8.6 g/dL (12.9-16.9) L 06/20/17 04:19 Hct 26.1 % (37.5-50.1) L 06/20/17 04:19 PT 11.4 Seconds (9.4-12.1) 06/19/17 04:34 Total Bilirubin 0.4 mg/dL (0.2-1.2) 06/19/17 04:34 AST 17 Units/L (5-34) 06/19/17 04:34 ALT 26 Units/L (0-55) 06/19/17 04:34 Lipase 52 Units/L (8-78) 06/19/17 04:34 - ABG ABG results: PT/INR, D-dimer PT 11.4 Seconds (9.4-12.1) 06/19/17 04:34 - VTE Reasons for not Prescribing Prophylaxis: Medical contraindication Documentation of Mechanical Device: Intermittent pneumatic compression device Consult Discharge Plan - Plan Referrals: Faith Prather MORTGAGE LOAN COUNSELOR [Primary Care Provider] - <Cheryle Rojas - Last Filed: 06/21/17 10:19> Date of Encounter: 06/20/17 Time of Encounter: 11:00 - Time Spent With Patient Total time spent is greater than 50% in coordination of care (as documented) at patient's floor/unit and/or counseling patient: - Constitutional Vitals: Temp Pulse Resp BP Pulse Ox 97.8 F 112 18 149/87 98 06/21/17 08:10 06/21/17 08:10 06/21/17 08:10 06/21/17 08:10 06/21/17 08:10 Results - Labs CBC & Chem 7: 06/21/17 02:42 06/21/17 02:42 Labs: Last Result Calcium 7.6 mg/dL (8.6-10.8) L 06/21/17 02:42 Troponin I 0.03 ng/mL (0-0.03) 06/19/17 04:34 Stool Occult Blood Positive (Negative) A 06/19/17 19:30 Entire Visit Hgb 10.0 g/dL (12.9-16.9) L 06/21/17 02:42 Hct 30.2 % (37.5-50.1) L 06/21/17 02:42 PT 11.4 Seconds (9.4-12.1) 06/19/17 04:34 Total Bilirubin 0.4 mg/dL (0.2-1.2) 06/19/17 04:34 AST 17 Units/L (5-34) 06/19/17 04:34 ALT 26 Units/L (0-55) 06/19/17 04:34 Lipase 52 Units/L (8-78) 06/19/17 04:34 - ABG ABG results: PT/INR, D-dimer PT 11.4 Seconds (9.4-12.1) 06/19/17 04:34 - Attending Attestation I examined this patient and my medical decision-making was reviewed with the Resident Physician. I agree with the documented findings, disposition and treatment plan as described except to the extent set forth below.
[2017-06-20] MEDS: Budesonide/Formoterol 80/4.5 MDI IH SCH ×2 (11:12→22:22)
[2017-06-20] MEDS ORDERED: Polyethylene Glycol 3350 255 GM POWDER PO ONE (17:21)
[2017-06-20 20:55] LABS: Hematocrit 31.5 % (37.5-50.1); Hemoglobin 10.4 g/dL (12.9-16.9)
[2017-06-21] MEDS: 0.9 % Sodium Chloride 1,000 ML IVC SCH (01:06)
[2017-06-21] MEDS: Piperacillin/Tazobactam 3.375 GM/200 ML BAG IVPB SCH ×3 (01:07→16:18)
[2017-06-21 03:17] LABS: Hematocrit 30.2 % (37.5-50.1); Mean Corpuscular HGB Conc 33.1 g/dL (31.6-35.5); Mean Corpuscular Hemoglobin 29.5 pg (28.0-33.3); Mean Corpuscular Volume 89.1 fL (83.0-100.0); Mean Platelet Volume 9.8 fL (9.4-12.4); Platelet Count 195 K/mcL (140-400); Red Blood Count 3.39 M/mcL (4.19-5.50); Red Cell Distribution Width 13.8 % (11.5-14.5)
[2017-06-21] MEDS: Ipratropium/Albuterol Neb 3 ML IH SCH ×4 (03:34→23:08)
[2017-06-21 03:36] LABS: BUN/Creatinine Ratio 15 (6-26); Blood Urea Nitrogen 14 mg/dL (8-26); Calcium 7.6 mg/dL (8.6-10.8); Carbon Dioxide 17 mEq/L (19-29); Chloride 111 mEq/L (98-109); Glucose 97 mg/dL (70-99); Magnesium 1.4 mg/dL (1.6-2.6); Osmolality,Calculated 286 (280-300); Potassium 3.4 mEq/L (3.5-4.5); Sodium 138 mEq/L (136-145); eGFR For African Americans > 60 (> 60); eGFR For Non-African Americans > 60 (> 60)
[2017-06-21] MEDS: Vancomycin 1,250 MG in D5% in Water 250 ML IVPB SCH ×2 (05:53→16:18)
[2017-06-21] MEDS: Pantoprazole 40 MG VIAL IVPB SCH (05:53)
[2017-06-21] MEDS ORDERED: Lidocaine -MPF 2% 2 ML VIAL ONE (08:03)
[2017-06-21] MEDS ORDERED: Propofol 500 MG/50 ML INFUS..BTL ONE (08:03)
--- NOTE | 2017-06-21 08:06 | Anesthesia Evaluation PreOp ---
Date of Encounter: 06/21/17 Time of Encounter: 08:04 - Past History Planned Operation: Colonoscopy re: melena/hematochezia Cardiac History: Hyperlipidemia (maintained on Lipitor), Other (Recent ED trip at outside facility whereby Cardiology stated he needed cath/pacers) Pulmonary History: Smoker (4ppd x many years now<1ppd. 50+yrs Smoker), COPD DIRECTOR OF PROCUREMENT History: Other (REcent hospitalization re: pneumonia, sepsis s/p Abx course - now w/suspected C.Diff Colitis) Anesthesia History: No Prior Anesthetic Complications, Past Anesthesia ( Cataracts, Vascular surgery, Orthopedic procedures) Alcohol Use: occasionally Drug use: none Medications and Allergies Atorvastatin Calcium [Lipitor] 20 mg PO QPM 06/19/17 [History] Ergocalciferol (VITAMIN D2) [Vitamin D2] 50,000 unit PO QWEEK 06/19/17 [History] Loratadine [Allergy Relief] 10 mg PO DAILY 06/19/17 [History] Metoprolol Succinate 50 mg PO DAILY 06/19/17 [History] 3 Allergy/AdvReac Type Severity Reaction Status Date / Time No Known Allergies Allergy Verified 06/19/17 07:08 - Meds/Allergy Pre-op Review Medications Reviewed: Yes Allergies Reviewed: Yes Beta Blockers on Current Med List: No Anesthesia Results - Labs 06/21/17 02:42 06/21/17 02:42 Laboratory Results WBC 14.2 K/mcL (4.3-11.1) H 06/21/17 02:42 RBC 3.39 M/mcL (4.19-5.50) L 06/21/17 02:42 Hgb 10.0 g/dL (12.9-16.9) L 06/21/17 02:42 Hct 30.2 % (37.5-50.1) L 06/21/17 02:42 MCV 89.1 fL (83.0-100.0) 06/21/17 02:42 MCH 29.5 pg (28.0-33.3) 06/21/17 02:42 MCHC 33.1 g/dL (31.6-35.5) 06/21/17 02:42 RDW 13.8 % (11.5-14.5) 06/21/17 02:42 Plt Count 195 K/mcL (140-400) 06/21/17 02:42 MPV 9.8 fL (9.4-12.4) 06/21/17 02:42 Immature Gran % 5.7 % (0-4) H 06/19/17 04:34 Seg Neutrophils % 76.3 % 06/19/17 04:34 Lymphocytes % 12.7 % 06/19/17 04:34 Monocytes % 5.1 % 06/19/17 04:34 Eosinophils % 0.1 % 06/19/17 04:34 Basophils % 0.1 % 06/19/17 04:34 Neutrophils # 22.1 K/mcL (1.6-8.9) H 06/19/17 04:34 Lymphocytes # 3.7 K/mcL (0.6-4.6) 06/19/17 04:34 Monocytes # 1.5 K/mcL (0.0-1.3) H 06/19/17 04:34 Eosinophils # 0.0 K/mcL (0.0-0.6) 06/19/17 04:34 Basophils # 0.0 K/mcL (0.0-0.2) 06/19/17 04:34 Platelet Estimate Normal (Normal) 06/19/17 04:34 PT 11.4 Seconds (9.4-12.1) 06/19/17 04:34 INR 1.1 06/19/17 04:34 APTT 22.4 Seconds (26.0-36.0) L 06/19/17 04:34 Sodium 138 mEq/L (136-145) 06/21/17 02:42 Potassium 3.4 mEq/L (3.5-4.5) L 06/21/17 02:42 Chloride 111 mEq/L (98-109) H 06/21/17 02:42 Carbon Dioxide 17 mEq/L (19-29) L 06/21/17 02:42 BUN 14 mg/dL (8-26) D 06/21/17 02:42 Creatinine 0.96 mg/dL (0.72-1.25) 06/21/17 02:42 Est GFR ( Amer) > 60 (> 60) 06/21/17 02:42 Est GFR (Non-Af Amer) > 60 (> 60) 06/21/17 02:42 BUN/Creatinine Ratio 15 (6-26) 06/21/17 02:42 Glucose 97 mg/dL (70-99) 06/21/17 02:42 POC Glucose 136 (58-89) H 06/19/17 06:38 Calculated Osmolality 286 (280-300) 06/21/17 02:42 Lactic Acid 0.8 mmol/L (0.5-2.2) 06/19/17 07:03 Calcium 7.6 mg/dL (8.6-10.8) L 06/21/17 02:42 Phosphorus 2.5 mg/dL (2.3-4.7) 06/20/17 04:19 Magnesium 1.4 mg/dL (1.6-2.6) L 06/21/17 02:42 Total Bilirubin 0.4 mg/dL (0.2-1.2) 06/19/17 04:34 AST 17 Units/L (5-34) 06/19/17 04:34 ALT 26 Units/L (0-55) 06/19/17 04:34 Alkaline Phosphatase 51 Units/L (38-126) 06/19/17 04:34 Troponin I 0.03 ng/mL (0-0.03) 06/19/17 04:34 Serum Total Protein 5.8 g/dL (6.0-8.3) L 06/19/17 04:34 Albumin 2.6 g/dL (3.5-5.0) L 06/19/17 04:34 Globulin 3.2 g/dL (2.4-3.5) 06/19/17 04:34 Albumin/Globulin Ratio 0.8 (1.1-2.2) L 06/19/17 04:34 Lipase 52 Units/L (8-78) 06/19/17 04:34 Urine Color Yellow (Yellow) 06/19/17 05:22 Urine Clarity Clear (Clear) 06/19/17 05:22 Urine pH 6.5 pH Units (5.0-8.0) 06/19/17 05:22 Ur Specific Anthony 1.024 (1.010-1.025) 06/19/17 05:22 Urine Protein 30 mg/dL (Neg-Trace) H 06/19/17 05:22 Urine Glucose (UA) Normal mg/dL (Normal) 06/19/17 05:22 Urine Ketones Negative mg/dL (Negative) 06/19/17 05:22 Urine Blood Negative (Negative) 06/19/17 05:22 Urine Nitrite Negative (Negative) 06/19/17 05: Urine Bilirubin Negative (Negative) 06/19/17 05: Urine Urobilinogen Normal mg/dL (Normal) 06/19/17 05:22 Ur Leukocyte Esterase Negative (Negative) 06/19/17 05:22 Urine Microscopic RBC 0-3 per hpf (0-3) 06/19/17 05:22 Urine Microscopic WBC 0-3 per hpf (0-3) 06/19/17 05:22 Ur Squamous Epith Cells Many per lpf (None-Few) H 06/19/17 05: Urine Bacteria None Seen per hpf (None-Few) 06/19/17 05: Hyaline Casts None Seen per lpf (None-Few) 06/19/17 05: Ur Culture Indicated? NO (NO) 06/19/17 05:22 Stool Occult Blood Positive (Negative) A 06/19/17 19:30 Stl C. cayetanensis PCR Not detected (Not detect) 06/19/17 19:30 Stool Rotavirus A PCR Not detected (Not detect) 06/19/17 19:30 Stl Adenov F 40/41 PCR Not detected (Not detect) 06/19/17 19:30 Stool Astrovirus (PCR) Not detected (Not detect) 06/19/17 19:30 Stool Campylobacter PCR Not detected (Not detect) 06/19/17 19:30 Stl C. diff Tox A/B PCR Not detected (Not detect) 06/19/17 19:30 Stool Cryptosporidium PCR Not detected (Not detect) 06/19/17 19:30 Stl Sh Tox Pr E STEC PCR Not detected (Not detect) 06/19/17 19:30 Stool E coli O157 PCR Not detected (Not detect) 06/19/17 19:30 Stl Enterotoxigenic E PCR Not detected (Not detect) 06/19/17 19:30 Stool EPEC (PCR) Not detected (Not detect) 06/19/17 19:30 Stool EAEC (PCR) Not detected (Not detect) 06/19/17 19:30 Stl E. histolytica PCR Not detected (Not detect) 06/19/17 19:30 Stool Giardia Lamblia PCR Not detected (Not detect) 06/19/17 19:30 Stool Salmonella PCR Not detected (Not detect) 06/19/17 19:30 Stool Sapovirus (PCR) Not detected (Not detect) 06/19/17 19:30 Stl P. shigelloides PCR Not detected (Not detect) 06/19/17 19:30 Stl Shigella/EIEC PCR Not detected (Not detect) 06/19/17 19:30 St Y.enterocolitica PCR Not detected (Not detect) 06/19/17 19:30 Stool Vibrio (PCR) Not detected (Not detect) 06/19/17 19:30 Stl Vibrio cholerae PCR Not detected (Not detect) 06/19/17 19:30 Stl Norovirus GI/GII PCR Not detected (Not detect) 06/19/17 19:30 Stl GI Panel (PCR) Com See below 06/19/17 19:30 Vancomycin Trough 7.8 mcg/mL (10-20) L 06/21/17 02:42 Blood Type O POSITIVE 06/19/17 04:34 Antibody Screen NEGATIVE 06/19/17 04:34 Crossmatch See Detail 06/19/17 04:34 Impressions Chest X-Ray 06/19/17 04:28 IMPRESSION: No acute cardiopulmonary disease. COPD. D/ / Nahun Haddad MD / Nahun Haddad MD Interpreting Provider: Nahun Haddad MD Abdomen/Pelvis CT 06/19/17 04:40 IMPRESSION: 1. Mild infiltration of the peripancreatic fat in the region of the pancreatic head suggesting either a mild focal pancreatitis or duodenitis. 2. No other acute findings within the abdomen or pelvis. No CT evidence of appendicitis. 3. Patchy right lower lobe infiltrates suggesting a pneumonia. COPD. 4. Previous aorto-bifemoral graft. Moderate aortoiliac plaque with no aneurysm. D/ / 06/19/2017 07:53:48 Nahun Haddad MD / liam Interpreting Provider: Nahun Haddad MD Anesthesia Exam Vital Signs Temp Pulse Resp BP Pulse Ox 06/21/17 07:41 18 94 06/21/17 07:17 97.6 F 115 17 135/79 94 06/21/17 04:52 97.7 F 113 16 141/84 95 06/21/17 03:35 18 95 06/21/17 00:46 97.6 F 121 18 151/79 92 06/20/17 22:24 18 97 06/20/17 20:40 98.3 F 116 17 151/86 95 06/20/17 17:12 98.1 F 111 158/88 95 06/20/17 16:33 98.1 F 93 17 148/90 96 06/20/17 15:56 18 95 06/20/17 14:39 98.1 F 110 18 131/70 97 06/20/17 14:24 98 F 115 18 131/75 06/20/17 13:36 98.7 F 106 18 131/80 97 06/20/17 12:10 97.9 F 06/20/17 12:03 121 22 150/84 95 06/20/17 11:15 21 95 06/20/17 10:57 97.9 F 105 21 136/85 06/20/17 10:42 97.8 F 111 22 127/75 06/20/17 10:20 119 20 127/75 95 Intake and Output Patient Weight 06/21/17 23:59 Weight 83.143 kg Height: 6' Weight: 183# BMI = 25 NPO (# of Hours): MNOC - HEENT Pupil (Motor): Pupils equal, EOMI Mallampati: II Teeth: Edentulous Oral Opening: Greater than 3 - DIRECTOR OF PROCUREMENT LOC: Oriented DIRECTOR OF PROCUREMENT Motor: Normal RUE, Normal LUE, Normal RLE, Normal LLE, Normal Face DIRECTOR OF PROCUREMENT Sensory: Normal: RUE, LUE, RLE, LLE, Face - Cardiac Rhythm: Regular Murmur: None - Pulmonary Breath Sounds: bilateral Clear (Diminished) Respiratory Effort: Symmetrical Anesthesia Assess/Plan ASA Score: 3 (COPD, Chol, Smoker) Modified Arti Scale for Level of Consciousness: Cooperative, oriented, and tranquil Anesthetic Plan: MAC Monitoring Plan: Standard Monitors Recovery Plan: Other Anes Supervising Prov Stmt: PT seen/evaluated, R&B Discussed, questions answered and consent obtained. Lisa Ray MD
[2017-06-21] MEDS ORDERED: *HR* Phenylephrine 10 MG/ML VIAL ONE (08:38)
[2017-06-21] MEDS ORDERED: *HR* Propofol 200 MG/20 ML VIAL IVP ONE (08:43)
[2017-06-21] MEDS ORDERED: *HR* LORazepam 1 MG TABLET PO ONE (09:53)
[2017-06-21] MEDS: Metoprolol XL (24 HR) Succ 50 MG TAB.ER.24H PO SCH (10:03)
[2017-06-21] MEDS: Thiamine (B-1) 100 MG TABLET PO SCH (10:04)
[2017-06-21] MEDS: Folic Acid 1 MG TABLET PO SCH (10:04)
[2017-06-21] MEDS: Vitamin B Complex/Vit C/Vit E 1 EACH TABLET PO SCH (10:04)
[2017-06-21] MEDS ORDERED: Aminoglycoside Consult 1 EACH MC ONE (10:56)
[2017-06-21] MEDS: Pantoprazole 40 MG in 0.9 % Sodium Chloride Mini Bag 100 ML IVC SCH ×2 (11:34→23:24)
[2017-06-21] MEDS: Budesonide/Formoterol 80/4.5 MDI IH SCH ×2 (11:52→23:08)
--- NOTE | 2017-06-21 13:57 | Internal Med Progress Note ---
<Radha Muniz - Last Filed: 06/21/17 14:24> Date of Encounter: 06/21/17 Time of Encounter: 13:51 - Assessment and plan (1) Hematochezia Current Visit: Yes Status: Acute Assessment and plan: Presented to ER with episodes of bright red blood per rectum. Had drop in hemoglobin from 12.3 to .6, received 2 units PRBC and increased to 10.4 GI following, appreciate input and expertise EGD with evidence of 3 non bleeding cratered duodenal ulcers in the duodenal bulb/D2 area with evidence of extensive inflammation. Largest was 3 cm and encompassed for than 1/3 of the circumference of lumen. Colonoscopy with 2 sessile non bleeding polyps rectum and a 3 mm nonbleeding polyp found in the sigmoid colon. Likely source of completing appears to be the duodenal ulcers. Will continue Printronix IV drip for 24 hours. After that point will transition to oral medications. Anticipate possible discharge tomorrow. (2) Anemia, posthemorrhagic, acute Current Visit: Yes Status: Acute Assessment and plan: Hemoglobin 12.3 on arrival decreased to 80.6. Accompanied by tachycardia. Secondary to keep blood loss likely from duodenal ulcer found on EGD. Has received 2 units of PRBC, hemoglobin stable at 10.4. Continue to monitor CBC. (3) HCAP (healthcare-associated pneumonia) Current Visit: Yes Status: Acute Assessment and plan: Improving continue zosyn (day 2) . (4) Hypertension Current Visit: Yes Status: Chronic Assessment and plan: Controlled at this time. Qualifiers: Hypertension type: essential hypertension Qualified Code(s): I10 - Essential (primary) hypertension (5) Severe sepsis Current Visit: Yes Status: Resolved Assessment and plan: Continues to improve. Symptoms resolving (6) C. difficile colitis Current Visit: Yes Status: Ruled-out Assessment and plan: Testing was negative. Patient did receive dose of Flagyl, but stopped upon the negative test result. - Subjective Interval history: 71 year old male admitted for episode of bright red blood per rectum, no prior episodes previously. Had EGD and colonoscopy this AM with GI. EGD with 3 non bleeding duodenal ulcers largest 3 cm. Colonoscopy with 3 non bleeding polyps. No evidence of acute bleeding. Is currently on protonix drip. He states he has never had a history of an episode like this before. No known history previously of ulcer. He denies any abdominal pain. He states he does drink occasionally, his last drink was 3 days ago and he had 3 beers. He is anxious to return home. - Constitutional Vitals: Temp Pulse Resp BP Pulse Ox 97.8 F 103 17 118/78 96 06/21/17 11:04 06/21/17 11:04 06/21/17 11:53 06/21/17 11:04 06/21/17 11:53 General appearance: Present: cooperative, A&O X 3, pleasant, no acute distress, obese, answers questions appropriately - Head Head exam: Present: atraumatic, normocephalic - ENT ENT exam: Present: mucous membranes moist - Neck Neck exam general surgery: Present: supple, trachea midline - Respiratory Respiratory exam: Present: CTAB. Absent: rales, rhonchi, stridor, wheezes - Cardiovascular Cardiovascular exam: Present: RRR, +S1, +S3. Absent: diastolic murmur, gallop, rubs, systolic murmur - GI/Abdominal GI/Abdominal exam: Present: normal bowel sounds, soft. Absent: distended, firm , guarding, tenderness - Extremities Exam Extremities exam: Present: normal capillary refill. Absent: pedal edema - Skin Skin exam: Present: dry, intact, warm Internal Medicine: Result - Labs CBC & Chem 7: 06/21/17 02:42 06/21/17 02:42 Labs: Short CBC 06/20/17 06/21/17 Range/Units 18:56 02:42 WBC 14.2 H (4.3-11.1) K/mcL Hgb 10.4 L D 10.0 L (12.9-16.9) g/dL Hct 31.5 L 30.2 L (37.5-50.1) % Plt Count 195 (140-400) K/mcL BMP 06/21/17 02:42 Sodium 138 Potassium 3.4 L Chloride 111 H Carbon Dioxide 17 L BUN 14 D Creatinine 0.96 Glucose 97 Calcium 7.6 L - ABG Interpretation ABG results: PT/INR, D-dimer PT 11.4 Seconds (9.4-12.1) 06/19/17 04:34 - VTE Reasons for not Prescribing Prophylaxis: Medical contraindication Documentation of Mechanical Device: Intermittent pneumatic compression device Consult Discharge Plan - Plan Referrals: Faith Prather, SUSAN [Primary Care Provider] - <GeovanniThomas Angela - Last Filed: 06/21/17 18:36> Date of Encounter: 06/21/17 - Assessment and plan (1) Hematochezia Current Visit: Yes Status: Acute (2) Acute duodenal ulcer Current Visit: Yes Status: Acute (3) Anemia, posthemorrhagic, acute Current Visit: Yes Status: Acute (4) HCAP (healthcare-associated pneumonia) Current Visit: Yes Status: Acute (5) History of alcohol use Current Visit: Yes Status: Acute (6) Hypertension Current Visit: Yes Status: Chronic Qualifiers: Hypertension type: essential hypertension Qualified Code(s): I10 - Essential (primary) hypertension - Constitutional Vitals: Temp Pulse Resp BP Pulse Ox 97.8 F 95 17 149/87 97 06/21/17 11:04 06/21/17 15:29 06/21/17 15:29 06/21/17 15:29 06/21/17 15:29 Internal Medicine: Result - Labs CBC & Chem 7: 06/21/17 15:51 06/21/17 02:42 Labs: Short CBC 06/20/17 06/21/17 06/21/17 Range/Units 18:56 02:42 15:51 WBC 14.2 H 11.9 H (4.3-11.1) K/mcL Hgb 10.4 L D 10.0 L 10.4 L (12.9-16.9) g/dL Hct 31.5 L 30.2 L 30.9 L (37.5-50.1) % Plt Count 195 197 (140-400) K/mcL Neutrophils # 8.1 (1.6-8.9) K/mcL BMP 06/21/17 02:42 Sodium 138 Potassium 3.4 L Chloride 111 H Carbon Dioxide 17 L BUN 14 D Creatinine 0.96 Glucose 97 Calcium 7.6 L - ABG Interpretation ABG results: PT/INR, D-dimer PT 11.4 Seconds (9.4-12.1) 06/19/17 04:34 - Attending Attestation I examined this patient and my medical decision-making was reviewed with the Resident Physician on 06/21/17. I agree with the documented findings, disposition and treatment plan as described except to the extent set forth below. Mr Medrano is currently admitted for acute GI bleed. He has been found to have large duodenal ulcers. He remains moderate to high risk due to potential for rebleeding. Mr Medrano is hungry. No pain noted. No fever or chills. He wants to go home but needs to be on IV Protonix drip. No abd now. No further bleeding overnight. Exam Alert. Comfortable Mucus membranes dry Heart reg No wheeze Abd soft I/P 1. GI bleed due to duodenal ulcers 2. Anemia Further diagnoses and plan as above.
[2017-06-21 16:24] LABS: Basophils # 0.1 K/mcL (0.0-0.2); Basophils % 0.9 %; Eosinophils # 0.3 K/mcL (0.0-0.6); Eosinophils % 2.5 %; Hematocrit 30.9 % (37.5-50.1); Hemoglobin 10.4 g/dL (12.9-16.9); Lymphocytes # 1.9 K/mcL (0.6-4.6); Lymphocytes % 15.7 %; Mean Corpuscular HGB Conc 33.7 g/dL (31.6-35.5); Mean Corpuscular Hemoglobin 30.2 pg (28.0-33.3); Mean Corpuscular Volume 89.8 fL (83.0-100.0); Mean Platelet Volume 9.8 fL (9.4-12.4); Monocytes # 0.9 K/mcL (0.0-1.3); Monocytes % 7.9 %; Neutrophils # 8.1 K/mcL (1.6-8.9); Platelet Count 197 K/mcL (140-400); Red Blood Count 3.44 M/mcL (4.19-5.50)
[2017-06-22] MEDS: Piperacillin/Tazobactam 3.375 GM/200 ML BAG IVPB SCH (02:01)
[2017-06-22] MEDS: Ipratropium/Albuterol Neb 3 ML IH SCH ×2 (03:27→10:34)
[2017-06-22] MEDS: Vancomycin 1,250 MG in D5% in Water 250 ML IVPB SCH (05:02)
[2017-06-22] MEDS: Pantoprazole 40 MG in 0.9 % Sodium Chloride Mini Bag 100 ML IVC SCH (05:04)
[2017-06-22 07:18] VITALS: BP 137/85
[2017-06-22] MEDS ORDERED: FLUARIX QUAD 2017-18 36MOS UP/PF 0.5 ML SYRINGE IM ONE (07:54)
[2017-06-22] MEDS ORDERED: Pantoprazole 40 MG VIAL IVPB SCH (08:00)
--- NOTE | 2017-06-22 08:16 | Discharge Summary ---
<Radha Muniz - Last Filed: 06/22/17 09:30> Date of Encounter: 06/22/17 Time of Encounter: 08:12 - Discharge Diagnosis (1) Hematochezia Priority: Primary Status: Acute Comments: Patient presented with bright red blood per rectum and was found to be came occult positive. G.I. was consultative. Colonoscopy with evidence of 3 non-bleeding polyps in rectum and sigmoid. No other acute abnormalities. EGD with evidence of 3 large cratered ulcers involving the duodenal bulb and 2nd portion of duodenum. Biopsies pending. Was IV Protonix trip, transition to IV Protonix. Will be transitioned to oral Protonix prior to discharge. Should follow up with gastroenterology as an outpatient. (2) Anemia, posthemorrhagic, acute Priority: Primary Status: Acute Comments: Patient with decrease in hemoglobin. Likely secondary to acute gastrointestinal leed. Received 2 unit PRBC during hospital stay. No evidence of active bleeding on EGD or colonoscopy as previously discussed. Repeat hemoglobin stable. No current active bleeding. (3) HCAP (healthcare-associated pneumonia) Priority: Primary Status: Acute Comments: Received 2 days antibiotics in hospital, will be discharged home on additional course of oral antibioics (4) Hypertension Priority: Secondary Status: Chronic Comments: Chronic. Stable. Continue on home medications Qualifiers: Hypertension type: essential hypertension Qualified Code(s): I10 - Essential (primary) hypertension (5) Severe sepsis Priority: Primary Status: Resolved Comments: Presented with sepsis. resolved with IV fluids and antibiotics. (6) C. difficile colitis Priority: Primary Status: Ruled-out Comments: Started on flagyl, received 1 dose. Stool testing negative and antibiotics discontinued. - Discharge Medications Prescriptions: Amoxicillin/Clavulanate [Augmentin] 875 mg PO BIDWM #14 tablet Budesonide/Formoterol 80/4.5 [Symbicort 80/4.5] 2 puff IH BIDR #1 inhaler Folic Acid 1 mg PO DAILY #30 tablet Omeprazole [PriLOSEC] 40 mg PO BIDAC #60 capsule. Thiamine (B-1) [Vitamin B-1] 100 mg PO DAILY #30 tablet Vitamin B Complex/Vit C/Vit E [Stresstab] 1 each PO DAILY #30 tablet Home Medications: Atorvastatin Calcium [Lipitor] 20 mg PO QPM 06/19/17 [History] Ergocalciferol (VITAMIN D2) [Vitamin D2] 50,000 unit PO QWEEK 06/19/17 [History] Loratadine [Allergy Relief] 10 mg PO DAILY 06/19/17 [History] Metoprolol Succinate 50 mg PO DAILY 06/19/17 [History] Amoxicillin/Clavulanate [Augmentin] 875 mg PO BIDWM #14 tablet 06/22/17 [Rx] Budesonide/Formoterol 80/4.5 [Symbicort 80/4.5] 2 puff IH BIDR #1 inhaler 06/22 [Rx] Folic Acid 1 mg PO DAILY #30 tablet 06/22/17 [Rx] Omeprazole [PriLOSEC] 40 mg PO BIDAC #60 capsule.dr 06/22/17 [Rx] Thiamine (B-1) [Vitamin B-1] 100 mg PO DAILY #30 tablet 06/22/17 [Rx] Vitamin B Complex/Vit C/Vit E [Stresstab] 1 each PO DAILY #30 tablet 06/22/17 [ Rx] Allergies/Adverse Reactions: 3 Allergy/AdvReac Type Severity Reaction Status Date / Time No Known Allergies Allergy Verified 06/19/17 07:08 Date of admission: 06/19/17 06:18 Primary care physician: THEODORA Stewart Consults: 06/19/17 09:20 Consult to Gastroenterology [CONS] Routine Consulting Provider: Gastroenterology Shanda Reason for Consult: GI bleed Time Notified: 09:15 Call Completed: Yes Discharging clinician: Thomas Galarza - Patient Status Disposition: Home, Self-Care Condition: Good Overall status at discharge: patient is progressing back to baseline - Discharge Instructions Instructions: Gastrointestinal Bleeding (DC) Follow Up With: Faith Prather CNP [Primary Care Provider] - (Please call and darline a hospital follow up 5-7 days from discharge. Thank you! ) Christopher Lopez MD [Partnered Physician] - (please call to make hospital follow up appointment for evaluation of COPD ) Cheryle Rojas MD [Partnered Physician] - (Please call to make hospital follow up appointment ) - Diet and Activity Activity: resume usual activities as tolerated Diet: advance to your usual diet (soft foods, avoid acidic and spicy foods ) Hospital course: Mr. Medrano is a 71 year old male who presented to ER with acute bright red blood per rectum. He was found to be hemocult positive. His hemoglobin dropped and he received 2 units PRBC. GI was consulted. He was placed on a protonix drip. He had a colonoscopy performed which was significnat for 3 non bleeding polyps in rectum and sinmoid colon. EGD with 3 large cratered ulcers with evidence of inflammation in duodenal bulb and second are or duodenum. He was switched to IV protonix for 24 hours. He was discharged home on oral PPI BID. He should follow up outpatient with GI. He shoudl have a repeat CBC done 1 -2 weeks after discharge to ensure his hemoglobin remains stable. Biopsies taken during EGD and colonoscopy were pending at discharge. He had evidence of pneumonia on chest xray. He received inpateint treatment with zosyn, he was discharged home with 7 days additional of augmentin. He was started on a controller medication for suspected COPD, he shoudl follow up with pulmonology as an outpatient to establish care and for further evaluation of his suspected COPD. He was placed on CIWA protocol during stay for history of alcohol abuse. He was instructed to follow up with his primary care physician the week following discharge. He was discharged home on a mechanical soft diet and was in good condition on day of discharge. - Time Spent with Patient Total time spent providing and/or coordinating discharge services: - Constitutional Vitals: Temp Pulse Resp BP Pulse Ox 98.1 F 101 16 137/85 96 06/22/17 07:17 06/22/17 07:17 06/22/17 07:17 06/22/17 07:17 06/22/17 07:17 General appearance: Present: cooperative, A&O X 3, pleasant, no acute distress, obese, answers questions appropriately - Head Head exam: Present: atraumatic, normocephalic - ENT ENT exam: Present: mucous membranes moist - Neck Neck exam general surgery: Present: supple, trachea midline - Respiratory Respiratory exam: Present: CTAB. Absent: rales, rhonchi, stridor, wheezes - Cardiovascular Cardiovascular exam: Present: RRR, +S1, +S2. Absent: diastolic murmur, systolic murmur - GI/Abdominal GI/Abdominal exam: Present: normal bowel sounds, soft. Absent: distended, guarding, rebound, tenderness - Extremities Exam Extremities exam: Present: normal capillary refill. Absent: pedal edema - Skin Skin exam: Present: dry, intact, warm - VTE Reasons for not Prescribing Prophylaxis: Medical contraindication Documentation of Mechanical Device: Intermittent pneumatic compression device <Thomas Galarza - Last Filed: 06/22/17 14:47> Date of Encounter: 06/22/17 - Discharge Diagnosis (1) Hematochezia Status: Acute (2) Acute duodenal ulcer Priority: Primary Status: Acute (3) Anemia, posthemorrhagic, acute Status: Acute (4) HCAP (healthcare-associated pneumonia) Status: Acute (5) COPD (chronic obstructive pulmonary disease) Priority: Secondary Status: Suspected Comments: Needs outpatient follow up. Qualifiers: COPD type: emphysema Emphysema type: centrilobular Qualified Code(s): J43.2 - Centrilobular emphysema (6) History of alcohol use Priority: Secondary Status: Acute (7) Hypertension Status: Chronic Qualifiers: Hypertension type: essential hypertension Qualified Code(s): I10 - Essential (primary) hypertension Date of admission: 06/19/17 06:18 Primary care physician: THEODORA Stewart Consults: 06/19/17 09:20 Consult to Gastroenterology [CONS] Routine Consulting Provider: Gastroenterology Shanda Reason for Consult: GI bleed Time Notified: 09:15 Call Completed: Yes Hospital course: Mr. Medrano is a 71 year old male - Time Spent with Patient Total time spent providing and/or coordinating discharge services: 39min - Constitutional Vitals: Temp Pulse Resp BP Pulse Ox 98.1 F 101 16 137/85 96 06/22/17 07:17 06/22/17 07:17 06/22/17 07:17 06/22/17 07:17 06/22/17 07:17 - Attending Attestation I examined this patient and my medical decision-making was reviewed with the Resident Physician on 06/22/17. I agree with the documented findings, disposition and treatment plan as described except to the extent set forth below. Mr. Medrano has been admitted for acute GI bleed. He received blood transfusion and underwent EGD/Colonoscopy. He was found to have 3 large duodenal nonbleeding ulcers. He received IV protonix. Today he is tolerating diet and is afebrile. His vitals are stable. He will be discharged home for outpatient followup. Exam Alert. Comfortable Mucus membranes dry Heart reg - not tachy now Lungs clear Abd soft Plan D/C home today PPI Complete abx Follow up with PCP and GI Refer for pulm follow up for COPD.
[2017-06-22] MEDS: Thiamine (B-1) 100 MG TABLET PO SCH (08:21)
[2017-06-22] MEDS: Metoprolol XL (24 HR) Succ 50 MG TAB.ER.24H PO SCH (08:21)
[2017-06-22] MEDS: Folic Acid 1 MG TABLET PO SCH (08:21)
[2017-06-22] MEDS: Vitamin B Complex/Vit C/Vit E 1 EACH TABLET PO SCH (08:21)
[2017-06-22] MEDS: Budesonide/Formoterol 80/4.5 MDI IH SCH (10:34)
== END 2017-06-22 10:57 | disposition home or self-care (01) ==
LOC: EMEROO 04:15 → ICNU 06:18 → SUATTDRO 06:18 → INTOOBSV 06:18 → ICNU 06:41 → 2ANU 06-20 12:45
PROVIDERS: ADMIT Internal Medicine; ATTEND Internal Medicine
PROC: ENDOEBX (2017-06-21 08:15)